=== PATIENT | male | born 1945 | race Caucasian/White ===

== ENCOUNTER 2025-08-01 16:30 | Emergency (ER) | payer MEDICARE, BC, SELFPAY ==
[2025-08-01 17:10] LABS: Hematocrit 43.3 % (39.0-52.0); Hemoglobin 14.4 g/dL (13.0-18.0); Mean Corp Hgb Conc. 33.3 g/dL (33.0-37.0); Mean Corpuscular Volume 89.5 fL (80.0-94.0); Nucleated Red Blood Cells % 0 % (-); Platelet Count 234 10^3/uL (130-400); Red Cell Dist. Width 14.2 % (11.5-14.5)
[2025-08-01 17:25] LABS: ALT (SGPT) 27 U/L (0-50); AST (SGOT) 29 U/L (17-59); Albumin 4.1 g/dl (3.5-5.0); Alkaline Phosphatase 81 U/L (38-126); Blood Urea Nitrogen 20 mg/dl (9-20); Calcium 10.4 mg/dl (8.4-10.2); Carbon Dioxide 26 mmol/L (22-30); Chloride 105 mmol/L (98-107); Glucose 108 mg/dl (70-99); Potassium 4.8 mmol/L (3.5-5.1); Sodium 137 mmol/L (135-145); Total Protein 6.3 g/dl (6.3-8.2); eGFR > 60.00
[2025-08-01] MEDS: PERCOCET 5/325 1 TABLET PO (20:47)
--- NOTE | 2025-08-01 23:21 | ED.GENMED ---
History of Present Illness
General
Chief Complaint: Skin Problem
Time Seen by Provider: 08/01/25 18:43
History of Present Illness
History of Present Illness:
79-year-old male presenting with left arm pain and swelling starting 10 days ago. Patient states that he was playing softball when he fell backwards landing on his left elbow. No head injury or other injuries. Patient states he initially was having
swelling to his left elbow, seen at urgent care where he had negative x-rays. Patient states that he followed up with his primary care doctor who sent him to his orthopedic. Patient states orthopedic started patient on Keflex, gave Percocet as
needed for pain. Patient states that pain and swelling has continued prompting ED arrival. Patient denies fever. Patient dates he is on Eliquis for history of A-fib, has not missed any doses.
Past History
Past History
ED Past Medical History: Arrthythmia, Cancer, HTN, Hypercholesterolemia and Other (Form of Non Hodgkins lymphoma.)
ED Past Surgical History: Appendectomy and Other (Thyroidectomy)
Social History
Tobacco: Non-smoker
Alcohol: Occasional
Drug: None
Personal:
Living: with family
Employment: Retired
Family History
Family History: Other (Noncontributory)
Phy Exam
Physical Exam
Physical Exam:
General: Alert, no acute distress
Head: NCAT
Eyes: clear conjunctiva
Neck: supple
Cardiac: regular rate and rhythm, no murmur
Lungs: clear to auscultation bilaterally. No wheezes, rales, or rhonchi. Speaking full unlabored sentences. No respiratory distress.
Abdomen: soft, nondistended nontender. No rebound or guarding.
MSK: Swelling and bruising to left olecranon. No fluctuance. Swelling to left upper extremity. Ecchymosis to distal fingertips with left hand swelling. No bony tenderness to palpation. Palpable left radial pulse. Left arm neurovascularly
intact. Full range of motion left upper extremity. Ring in place to left fourth finger, unable to remove secondary to finger swelling. Compartments soft to left upper extremity. No erythema to left upper extremity
Skin: warm, dry
Neuro: Alert and oriented x3. no focal deficits
Course
Orders/Labs/Results
Orders:
Orders
08/01/25 16:52
CMP [Comprehensive Metabolic Panel] Urgent
Complete Blood Count/With Diff Urgent
08/01/25 20:30
Oxycodone/Acetaminophen [Percocet 5/325] 1 tablet PO NOW STA
Abnormal Lab Results
08/01/25
16:52
Absolute Lymphs (auto) 0.8 L 10^3/uL
(1.2-3.4)
Absolute Monos (auto) 1.0 H 10^3/uL
(0.1-0.6)
Neutrophils % 76.7 H %
(42.2-75.2)
Lymphocytes % 9.8 L %
(20.5-51.1)
Monocytes % 11.8 H %
(1.7-9.3)
Glucose 108 H mg/dl
(70-99)
Calcium 10.4 H mg/dl
(8.4-10.2)
08/01/25 16:52
08/01/25 16:52
Vital Signs
Initial and Last Documented VS:
Initial Vital Signs
Temp Pulse Resp Pulse Ox
98.0 F 96 16 96
08/01/25 16:35 08/01/25 16:35 08/01/25 16:35 08/01/25 16:35
Last Documented Vital Signs
Temp Pulse Resp Pulse Ox
98.0 F 96 16 96
08/01/25 16:35 08/01/25 16:35 08/01/25 16:35 08/01/25 16:35
MDM/Problems Addressed
MDM/Problems Addressed:
79-year-old male presenting with left arm swelling status post fall and injury. Patient is on Eliquis. Results reviewed. Hemoglobin 14.4. Platelets 234. Recommended to remove ring secondary to swelling. Unable to remove with lubrication. Used
ring cutter to remove ring and gave to patient's . Low suspicion for DVT given patient is on eliquis. Low suspicion for cellulitis given no erythema, no increased warmth, no tenderness to palpation. Will give sling to help elevate left arm,
wrapped in katharine wrap for compression. Stable for discharge home with PCP follow up
*Pulse Oximetry
SaO2: 96
Oxygen Mode of Delivery: Room air
Patient hypoxic: no
*Critical Care Note
Total Time (30-74mins, 75-104mins- exclusive of procedures): Not Applicable
ED Attending Note
-
Portions of this chart may have been created with voice recognition software.� Occasional wrong word or��sound alike� substitutions may have occurred due to the inherent limitations of voice recognition software.
Discharge Plan
Departure
Patient Disposition: Home (Routine Discharge)
Date of Disposition: 08/01/25
Time of Disposition: 20:29
Patient with high blood pressure during this ER visit?: No
Discharge Problem:
Contusion
Instructions: Contusion
Prescriptions:
New
oxycodone-acetaminophen [Percocet] 5-325 mg tablet
1 tab PO Q6H PRN (Reason: Pain) Qty: 14 0RF
No Action
paroxetine HCl 20 MG tablet
20 mg PO DAILY
apixaban [Eliquis] 5 MG tablet
5 mg PO BID Qty: 14 0RF
metformin 500 MG tablet
500 mg PO DAILY
lisinopril 20 MG tablet
40 mg PO DAILY
amlodipine 5 MG tablet
5 mg PO DAILY
metoprolol succinate 25 MG tablet extended release 24 hr
25 mg PO DAILY
rosuvastatin [Crestor] 40 MG tablet
40 mg PO HS
ibrutinib [Imbruvica] 140 MG capsule
140 mg PO HS
levothyroxine 137 MCG tablet
137 mcg PO DAILY
spironolactone 25 MG tablet
25 mg PO DAILY
propylene glycol [Systane Balance] 10 ML drops
1 drp BOTH EYES HS
Referrals:
Nisha Inman CRNP [Family Provider, Internal Medicine]
Activity Restrictions/Additional Instructions:
Use katharine wrap. Wear sling as needed
Take percocet as needed for severe pain
Follow up with primary care doctor in 1-2 days
Return to the emergency department for new/worsening symptoms
Interventions
Interventions:
*Risk Screen - Suicide Last Done: 08/01/25 16:35
*General Assessment Last Done: 08/01/25 18:37
*Neglect/Abuse Screening Last Done: 08/01/25 16:35
*ED- Fall Risk Assessment Last Done: 08/01/25 18:37
*ED COVID-19 Vaccine History Last Done: 08/01/25 18:37
*Nursing Disposition Last Done: 08/01/25 21:30
ED-Skin Assessment Last Done: 08/01/25 18:38
Discharge Date and Time
Discharge Date/Time: 08/01/25 21:31
Print Language: [id number]
== END 2025-08-01 21:31 | disposition home or self-care (01) ==
LOC: EMR 16:30
PROVIDERS: Emergency Medicine; EMERGENCY PHYSICIAN Emergency Medicine; FAMILY PHYSICIAN Nurse Practitioner Family
DX: S40.022A Contusion of left upper arm, initial encounter (principal); I48.91 Unspecified atrial fibrillation; I10 Essential (primary) hypertension; E78.00 Pure hypercholesterolemia, unspecified; Z79.01 Long term (current) use of anticoagulants; Z85.72 Personal history of non-Hodgkin lymphomas; W18.39XA Other fall on same level, initial encounter; Y93.64 Activity, baseball; Y92.320 Baseball field as the place of occurrence of the external cause
CPT/HCPCS: 99283; 80053; 85025